=== PATIENT | female | born 1995 | race Caucasian/White ===

== ENCOUNTER 2018-02-14 08:37 | Emergency (ER) | payer SELFPAY ==
[2018-02-14 08:57] VITALS: BP 119/73
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
--- NOTE | 2018-02-14 09:58 | RAD ---
HISTORY: injury 5 days ago, worse again last night COMPARISONS: None VIEWS: 4, Frontal internal rotation, external rotation, outlet, and axillary views of the right shoulder FINDINGS: BONE DENSITY: Normal. BONES: There is no displaced fracture. JOINTS: There is no arthropathy. ALIGNMENT: There is no dislocation. SOFT TISSUES: Unremarkable. OTHER FINDINGS: None. IMPRESSION: NO ACUTE OSSEOUS INJURY. IF SYMPTOMS PERSIST, RECOMMEND REPEAT IMAGING.
== END 2018-02-14 10:39 | disposition home or self-care (01) ==
LOC: UCCORT 08:37
DX: S49.91XA Unspecified injury of right shoulder and upper arm, initial encounter (principal); W19.XXXA Unspecified fall, initial encounter; Y93.51 Activity, roller skating (inline) and skateboarding; Y92.9 Unspecified place or not applicable; R20.8 Other disturbances of skin sensation; Z88.0 Allergy status to penicillin
CPT/HCPCS: 99201; G0463